=== PATIENT | female | born 1960 | race African-American/Black ===

== ENCOUNTER 2017-07-04 19:42 | Emergency (ER) | payer OTHER ==
[~2017-07-04] VITALS: Ht 157.5 cm; Wt 78.0 kg
[2017-07-04 20:02] VITALS: BP 133/84
== END 2017-07-05 00:08 | disposition left against medical advice (07) ==
LOC: ER 20:18
DX: Z53.21 Procedure and treatment not carried out due to patient leaving prior to being seen by health care provider (principal)

== ENCOUNTER 2017-08-23 07:40 | Emergency (ER) | payer OTHER ==
[~2017-08-23] VITALS: Ht 157.5 cm; Wt 79.0 kg
[2017-08-23] MEDS ORDERED: DIAZEPAM 5 MG TABLET PO ONE (08:15)
[2017-08-23 08:19] LABS: CLARITY URINE CLEAR (CLEAR); COLOR URINE YELLOW (YELLOW); GLUCOSE URINE NEGATIVE (NEGATIVE); KETONES URINE NEGATIVE (NEGATIVE); LEUKOCYTE ESTERASE URINE TRACE (NEGATIVE); NITRITE URINE NEGATIVE (NEGATIVE); OCCULT BLOOD URINE NEGATIVE (NEGATIVE); PROTEIN URINE NEGATIVE (NEGATIVE); SPECIFIC GRAVITY URINE 1.021 (1.005-1.030); UROBILINOGEN URINE 0.2 E.U./dL (0.2-1.0)
[2017-08-23] MEDS: KETOROLAC 60MG/2ML VIAL IM STA ×2 (08:30→09:39)
[2017-08-23] MEDS ORDERED: HYDROCODONE/ACETAMINOPHEN 5/325MG TABLET PO ONE (09:30)
[2017-08-23 09:50] VITALS: BP 132/80
== END 2017-08-23 10:15 | disposition home or self-care (01) ==
LOC: ER 07:50
DX: G89.29 Other chronic pain (principal); M54.5 Low back pain; M19.90 Unspecified osteoarthritis, unspecified site
CPT/HCPCS: 81001; 96372; 99283; J1885; Z7610

== ENCOUNTER 2017-08-27 16:08 | Emergency (ER) | payer OTHER ==
[~2017-08-27] VITALS: Ht 157.5 cm; Wt 79.0 kg
[2017-08-27] MEDS ORDERED: KETOROLAC 60MG/2ML VIAL IM ONE (17:00)
[2017-08-27 17:12] VITALS: BP 127/73
[2017-08-27 17:24] LABS: CLARITY URINE CLEAR (CLEAR); COLOR URINE YELLOW (YELLOW); GLUCOSE URINE NEGATIVE (NEGATIVE); KETONES URINE NEGATIVE (NEGATIVE); LEUKOCYTE ESTERASE URINE NEGATIVE (NEGATIVE); NITRITE URINE NEGATIVE (NEGATIVE); OCCULT BLOOD URINE NEGATIVE (NEGATIVE); PROTEIN URINE NEGATIVE (NEGATIVE); SPECIFIC GRAVITY URINE 1.013 (1.005-1.030); UROBILINOGEN URINE 0.2 E.U./dL (0.2-1.0)
== END 2017-08-27 18:15 | disposition home or self-care (01) ==
LOC: ER 16:08
DX: M25.572 Pain in left ankle and joints of left foot (principal); G89.29 Other chronic pain; M54.5 Low back pain; M19.90 Unspecified osteoarthritis, unspecified site; Z98.84 Bariatric surgery status
CPT/HCPCS: 73610; 81003; 81025; 96372; 99285; J1885; Z7610

== ENCOUNTER 2017-09-05 20:35 | Emergency (ER) | payer OTHER ==
[~2017-09-05] VITALS: Ht 157.5 cm; Wt 84.0 kg
[2017-09-06] MEDS ORDERED: IBUPROFEN 600MG TABLET PO ONE (07:45)
[2017-09-06 07:51] VITALS: BP 124/92
== END 2017-09-06 08:01 | disposition home or self-care (01) ==
LOC: ER 20:35
DX: M79.641 Pain in right hand (principal); M25.571 Pain in right ankle and joints of right foot; M25.572 Pain in left ankle and joints of left foot
CPT/HCPCS: 73130; 73610; 99284; Z7610

== ENCOUNTER 2017-09-13 16:51 | Emergency (ER) | payer OTHER ==
[~2017-09-13] VITALS: Ht 157.5 cm; Wt 79.0 kg
[2017-09-13] MEDS ORDERED: OLAN5TAB3 PO (17:04)
[2017-09-13] MEDS ORDERED: LORA-250 PO (17:04)
[2017-09-13] MEDS ORDERED: KETOROLAC 30MG/ML VIAL IM ONE (18:15)
[2017-09-13 18:38] LABS: BASOPHILS % 0.8 % (0.0-2.0); HEMATOCRIT. 36.3 % (36.0-48.0); HEMOGLOBIN. 11.7 g/dL (12.0-16.0); LYMPHOCYTES % 27.9 % (20.0-50.0); MEAN CORPUSCULAR HEMOGLOBIN 27.3 pg (28.0-32.0); MEAN CORPUSCULAR VOLUME 84.7 fL (81.0-99.0); MEAN PLATELET VOLUME 10.5 fl (7.4-10.4); MONOCYTES % 10.8 % (2.0-8.0); NEUTROPHILS % 59.5 % (40.0-76.0); PLATELET 178 x1000/uL (130-400); RED BLOOD CELL COUNT 4.29 mill/uL (4.2-5.4); RED CELL DISTRIBUTION WIDTH 14.6 % (11.6-14.6)
[2017-09-13 18:50] LABS: CHLORIDE 115 mEq/L (98-107)
[2017-09-13 19:00] LABS: CARBON DIOXIDE 23 mEq/L (21-32)
[2017-09-13 19:45] VITALS: BP 123/71
== END 2017-09-13 19:59 | disposition home or self-care (01) ==
LOC: ER 17:28
DX: R60.0 Localized edema (principal); F31.9 Bipolar disorder, unspecified; Z98.890 Other specified postprocedural states
CPT/HCPCS: 36415; 71010; 80053; 83880; 85025; 93970; 96372; 99285; J1885; Z7610

== ENCOUNTER 2024-07-05 15:27 | Emergency (ER) | payer MEDICARE, MEDICAID ==
[2017-09-16 23:09] VITALS: O2SAT 100
[~2024-07-05] VITALS: Ht 154.9 cm; Wt 76.5 kg
[~2024-07-05 15:27] MED LIST: LORA-250 PO; OLAN5TAB3 PO
[2024-07-05 16:27] LABS: BASOPHILS % 0.4 % (0.0-2.0); EOSINOPHILS % 0.8 % (0.0-5.0); HEMOGLOBIN. 11.8 g/dL (12.0-16.0); LYMPHOCYTES % 44.4 % (20.0-50.0); MEAN CORPUSCULAR HEMOGLOBIN 26.4 pg (28.0-32.0); MEAN CORPUSCULAR VOLUME 85.3 fL (81.0-99.0); MEAN PLATELET VOLUME 11.1 fl (7.4-10.4); NEUTROPHILS % 44.4 % (40.0-76.0); PLATELET 165 x1000/uL (130-400); RED BLOOD CELL COUNT 4.46 mill/uL (4.2-5.4); RED CELL DISTRIBUTION WIDTH 16.7 % (11.6-14.6); WHITE BLOOD COUNT 4.5 x1000/uL (4.5-11.0)
[2024-07-05 16:32] LABS: CHLORIDE 115 mEq/L (98-107); SODIUM 146 mEq/L (136-145)
[2024-07-05 16:33] LABS: CALCIUM 8.9 mg/dL (8.7-10.4); CARBON DIOXIDE 25 mEq/L (21-32)
[2024-07-05 16:38] LABS: CREATININE 0.6 mg/dL (0.6-1.0); GLUCOSE 88 mg/dL (70-105); UREA NITROGEN BLOOD 9 mg/dL (9-23)
[2024-07-05 16:39] LABS: ETHANOL BLOOD < 10 mg/dL (<10); TROPONIN I HIGH SENSITIVITY < 4 ng/L (3.0-34)
[2024-07-05] MEDS: ASPIRIN 325MG TABLET PO NR (17:22)
[2024-07-05 18:01] LABS: CLARITY URINE CLEAR (CLEAR); COLOR URINE YELLOW (YELLOW); GLUCOSE URINE NEGATIVE (NEGATIVE); KETONES URINE NEGATIVE (NEGATIVE); LEUKOCYTE ESTERASE URINE NEGATIVE (NEGATIVE); NITRITE URINE NEGATIVE (NEGATIVE); OCCULT BLOOD URINE NEGATIVE (NEGATIVE); PROTEIN URINE NEGATIVE (NEGATIVE); SPECIFIC GRAVITY URINE 1.074 (1.005-1.030); UROBILINOGEN URINE 0.2 E.U./dL (0.2-1.0)
[2024-07-05 18:19] LABS: *AMPHETAMINES SCREEN URINE NEGATIVE (NEGATIVE); *BARBITURATES SCREEN URINE NEGATIVE (NEGATIVE); *BENZODIAZEPINES SCREEN URINE NEGATIVE (NEGATIVE); *COCAINE SCREEN URINE NEGATIVE (NEGATIVE); METHADONE URINE SCREEN NEGATIVE (NEGATIVE)
[2024-07-05 18:20] LABS: CANNABINOID URINE SCREEN NEGATIVE (NEGATIVE); ECSTASY MDMA SCREEN URINE NEGATIVE (NEGATIVE); OPIATES URINE SCREEN PRESUMPTIVE POSITIVE (NEGATIVE); PHENCYCLIDINE URINE SCREEN NEGATIVE (NEGATIVE)
[2024-07-05 20:13] LABS: TROPONIN I HIGH SENSITIVITY < 4 ng/L (3.0-34)
[2024-07-05 21:57] VITALS: BP 114/69; PULSE 61; RESP 18; TEMP 36.55848; O2SAT 98
[2024-07-05] MEDS ORDERED: IOHEXOL-350 100 ML BOTTLE ONE (22:15)
== END 2024-07-05 22:20 | disposition left against medical advice (07) ==
LOC: ER 15:27 → EDBEDREQ 15:49 → ER 22:20
DX: I63.9 Cerebral infarction, unspecified (principal); F32.A Depression, unspecified
CPT/HCPCS: 80305; 80048; 81003; 80320; 85025; 85610; 84484; 36415; 71045; 70496; 70498; 70450; 93005; 99291; Q9967; G0480